=== PATIENT | female | born 1975 | race Caucasian/White ===

== ENCOUNTER 2016-12-31 22:02 | Emergency (ER) | payer BC ==
--- NOTE | 2016-12-31 22:37 | EDM.PDOC ---
ED HPI GENERAL MEDICAL PROBLEM - General Chief Complaint: General Stated Complaint: NUMBNESS IN LEFT HAND/BOTH LEGS Time Seen by Provider: 12/31/16 22:34 - History of Present Illness INITIAL COMMENTS - FREE TEXT/NARRATIVE: HISTORY AND PHYSICAL: History of present illness: Patient 41-year-old white female she is a concern of left arm tingling bilateral lower extremity numbness tingling in right hand numbness tingling along with vaguely described chest pain without associated shortness breath palpitation nausea vomiting or other concerns patient is kind of recall an episode in which she was seen possibly emergency room for what was diagnosed as a panic attack she cannot give any specific details with features not medicated for such. She has no chest pain on arrival here her other concern other than some vague residual neurological symptoms as described above this is not demonstrable on exam there is no motor or sensory deficits. Review of systems: As per history of present illness and below otherwise all systems reviewed and negative. Past medical history: As per history of present illness and as reviewed below otherwise noncontributory. Surgical history: As per history of present illness and as reviewed below otherwise noncontributory. Social history: No reported history of drug or alcohol abuse. Family history: As per history of present illness and as reviewed below otherwise noncontributory. Physical exam: HEENT: Atraumatic, normocephalic, pupils reactive, negative for conjunctival pallor or scleral icterus, mucous membranes moist, throat clear, neck supple, nontender, trachea midline. Lungs: Clear to auscultation, breath sounds equal bilaterally, chest nontender. Heart: S1S2, regular, negative for clicks, rubs, or JVD. Abdomen: Soft, nondistended, nontender. Negative for masses or hepatosplenomegaly. Negative for costovertebral tenderness. Pelvis: Stable nontender. Genitourinary: Deferred. Rectal: Deferred. Extremities: Atraumatic, negative for cords or calf pain. Neurovascular unremarkable. Neuro: Awake, alert, oriented age. Cranial nerves II through XII unremarkable. Cerebellum unremarkable. Motor and sensory unremarkable throughout. Exam nonfocal. Diagnostics: CBC CMP chest x-ray EKG Therapeutics: None Impression: #1 multiple subjective paresthesias etiology to be determined #2 medical screening exam Definitive disposition and diagnosis as appropriate pending reevaluation and review of above. 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 ED EXAM, GENERAL - Physical Exam Exam: See Below (See dictation) Course - Vital Signs Text/Narrative:: Lengthy discussion with patient and with regard to the nonspecific nature of her presentation and the possibility of anxiety or other subacute or occult processes they agree with her current workup and close followup in the event that this is negative imaging studies apart from chest x-ray will be deferred at this time. Last Recorded V/S: Last Vital Signs Temp 36.5 C 12/31/16 22:18 Pulse 120 H 12/31/16 22:18 Resp 20 12/31/16 22:18 BP 157/102 H 12/31/16 22:18 Pulse Ox 96 12/31/16 22:18 - Orders/Labs/Meds Orders: Active Orders 24 hr Category Date Time Status EKG 12 Lead [EKG Documentation Completion] [RC] STAT Care 12/31/16 22:26 Active Chest 2V [CR] Stat Exams 12/31/16 22:27 Taken Labs: Laboratory Tests 12/31/16 12/31/16 Range/Units 22:40 22:40 WBC 10.57 (4.0-11.0) K/uL RBC 4.82 (4.30-5.90) M/uL Hgb 14.6 (12.0-16.0) g/dL Hct 42.8 (36.0-46.0) % MCV 88.8 (80.0-98.0) fL MCH 30.3 (27.0-32.0) pg MCHC 34.1 (31.0-37.0) g/dL RDW Std Deviation 40.9 (28.0-62.0) fl RDW Coeff of [place] 13 (11.0-15.0) % Plt Count 283 (150-400) K/uL MPV 9.70 (7.40-12.00) fL Neut % (Auto) 50.8 (48.0-80.0) % Lymph % (Auto) 43.2 H (16.0-40.0) % [place] % (Auto) 4.8 (0.0-15.0) % Eos % (Auto) 1.1 (0.0-7.0) % Baso % (Auto) 0.1 (0.0-1.5) % Neut # (Auto) 5.4 (1.4-5.7) K/uL Lymph # (Auto) 4.6 H (0.6-2.4) K/uL [place] # (Auto) 0.5 (0.0-0.8) K/uL Eos # (Auto) 0.1 (0.0-0.7) K/uL Baso # (Auto) 0.0 (0.0-0.1) K/uL Nucleated RBC % 0.0 /100WBC Nucleated RBCs # 0 K/uL Sodium 140 (136-146) mmol/L Potassium 4.0 (3.5-5.1) mmol/L Chloride 107 (98-110) mmol/L Carbon Dioxide 21 (21-31) mmol/L BUN 14 (6.0-23.0) mg/dL Creatinine 0.9 (0.6-1.5) mg/dL Est Cr Clr Drug Dosing 69.60 mL/min Estimated GFR (MDRD) > 60.0 ml/min Glucose 119 H (60-110) mg/dL Calcium 9.6 (8.8-10.8) mg/dL Total Bilirubin 0.2 (0.1-1.5) mg/dL AST 21 (5-40) IU/L ALT 27 (8-54) IU/L Alkaline Phosphatase 95 (40-150) Total Protein 7.7 (6.0-8.0) g/dL Albumin 4.2 (3.5-5.0) g/dL Globulin 3.5 (2.0-3.5) g/dL Albumin/Globulin Ratio 1.2 L (1.3-2.8) Departure - Departure Time of Disposition: 23:56 Disposition: Home, Self-Care 01 Condition: good Clinical Impression: Paresthesia - Discharge Information Forms: ED Department Discharge Additional Instructions: The following information is given to patients seen in the emergency department who are being discharged to home. This information is to outline your options for follow-up care. We provide all patients seen in our emergency department with a follow-up referral. The need for follow-up, as well as the timing and circumstances, are variable depending upon the specifics of your emergency department visit. If you don't have a primary care physician on staff, we will provide you with a referral. We always advise you to contact your personal physician following an emergency department visit to inform them of the circumstance of the visit and for follow-up with them and/or the need for any referrals to a consulting specialist. The emergency department will also refer you to a specialist when appropriate. This referral assures that you have the opportunity for followup care with a specialist. All of these measure are taken in an effort to provide you with optimal care, which includes your followup. Under all circumstances we always encourage you to contact your private physician who remains a resource for coordinating your care. When calling for followup care, please make the office aware that this follow-up is from your recent emergency room visit. If for any reason you are refused follow-up, please contact the [facility] emergency department at and asked to speak to the emergency department charge nurse. Followup primary medical doctor one to 2 days return as needed as discussed - My Orders Last 24 Hours: My Active Orders 12/31/16 22:26 EKG 12 Lead [EKG Documentation Completion] [RC] STAT 12/31/16 22:27 Chest 2V [CR] Stat - Assessment/Plan Last 24 Hours: My Active Orders 12/31/16 22:26 EKG 12 Lead [EKG Documentation Completion] [RC] STAT 12/31/16 22:27 Chest 2V [CR] Stat
[2016-12-31 23:09] LABS: CHLORIDE,CL 107 mmol/L (98-110); SODIUM,NA 140 mmol/L (136-146)
[2017-01-01 00:31] VITALS: BP 140/90
--- NOTE | 2017-01-01 15:33 | CR ---
EXAM DATE: 12/31/16 PATIENT'S AGE: 41 Patient: CHOCO FOOTE Facility: [place], [place] Site . Site : [id number] Study: XRay Chest [id number]/24/2017 11:28:52 PM Ordering Physician: Doctor Hart Final Report: INDICATION: Chest pain, extremity numbness/tingling since 2000hrs today. TECHNIQUE: Chest 2 views. COMPARISON: None. FINDINGS: No pneumothorax or pleural effusion. Lungs are clear. Cardiac and mediastinal contours are within normal limits. Upper abdomen and osseous structures as imaged show no acute abnormality. IMPRESSION: No acute cardiopulmonary disease. Dictated by: Taye Gant MD @ 12/31/2016 23:32:48 (Electronic Signature) Report Signed by Proxy. [facility] HOSPITALBlaise
== END 2017-01-01 00:03 | disposition home or self-care (01) ==
LOC: MW.ED 22:02
DX: R20.2 Paresthesia of skin (principal); Z88.0 Allergy status to penicillin; Z90.710 Acquired absence of both cervix and uterus; Z79.899 Other long term (current) drug therapy; Z98.890 Other specified postprocedural states
CPT/HCPCS: 36415; 71020; 71020-26; 80053; 85025; 93005; 99282; 99285-25

== ENCOUNTER 2017-04-05 17:54 | Emergency (ER) | payer BC ==
[2017-04-05 18:13] VITALS: BP 133/85
[2017-04-05] MEDS ORDERED: predniSONE 20 MG Tab PO ONE (18:43)
--- NOTE | 2017-04-05 18:52 | EDM.PDOC ---
ED HPI GENERAL MEDICAL PROBLEM - General Chief Complaint: Allergic Reaction Stated Complaint: RASH Time Seen by Provider: 04/05/17 18:30 Source of Information: Reports: Patient History Limitations: Reports: No Limitations - History of Present Illness INITIAL COMMENTS - FREE TEXT/NARRATIVE: HISTORY AND PHYSICAL: History of present illness: [Patient comes to the emergency room complaining of itchy rash to her chest, back, abdomen, upper and lower extremities. Came on suddenly last evening while at a barbecue. She has numerous food allergies and many unidentified allergies. She doesn't believe that she came into contact with any foods that she is allergic to. She did not use any new laundry detergent, bath soap body wash or lotions. She has otherwise felt well. She denies fever and chills, chest tightness, wheezing, cough, chest pain. No abdominal pain nausea or vomiting. She admits to a sore throat but had a tonsillectomy 3 weeks ago and continues to have a scratchy sensation in her throat. It is no worse today than it had been previously. She's been applying Benadryl topical cream without improvement. ] Review of systems: As per history of present illness and below otherwise all systems reviewed and negative. Past medical history: As per history of present illness and as reviewed below otherwise noncontributory. Surgical history: As per history of present illness and as reviewed below otherwise noncontributory. Social history: No reported history of drug or alcohol abuse. Family history: As per history of present illness and as reviewed below otherwise noncontributory. Physical exam: Temp recheck: 98.6 HEENT: Atraumatic, normocephalic. Oral mucous membranes are pink and moist. Posterior oropharynx appears to be healing well. Neck supple no lymphadenopathy. Lungs: Clear to auscultation, breath sounds equal bilaterally. No wheezing crackles or rales. Heart: S1S2, regular rate and rhythm. Skin: Maculopapular erythematous well-circumscribed lesions scattered lately across face and more prominently to chest back abdomen upper and lower extremities. Blanches with palpation. No vesicles or areas of tenderness. Presentation is consistent with allergic reaction. Neuro: Awake, alert, oriented. Exam nonfocal. Therapeutics: [Prednisone 60 mg by mouth] Impression: [atopic dermatitis ] Plan: [Discussed with patient that her rash appears to be consistent with an allergic reaction. She does not wish to be treated with a Medrol Dosepak as this is been ineffective for her in the past. Has done well with oral medications in the past with similar rashes in the past. She is given her first dose of prednisone in the ER. Rx written for prednisone 20 mg #18 take 3 tabs tomorrow, 2 tabs daily 2 days, then 2 tabs daily 2 days then 1.5 tab daily 2 days, then 1 tablet daily 2 days and one half tablet daily for 2 days. Follow-up with primary care. She is in agreement with today's plan. All questions are answered and concerns are addressed.] Definitive disposition and diagnosis as appropriate pending reevaluation and review of above. - Related Data Allergies Allergy/AdvReac Type Severity Reaction Status Date / Time acetaminophen [From Percocet] Allergy Anaphylactic Verified 04/05/17 18:14 Shock oxycodone [From Percocet] Allergy Anaphylactic Verified 04/05/17 18:14 Shock Penicillins Allergy Anaphylactic Verified 04/05/17 18:14 Shock Home Meds: Home Meds Fexofenadine [Pooja] 180 mg PO DAILY 03/23/16 [History] Albuterol Sulfate [Proair Hfa] 2 puff INH ASDIRECTED PRN 04/05/17 [History] Mometasone Furoate [Nasonex] 2 spray INH BID 04/05/17 [History] Past Medical History HEENT History: Reports: Impaired Vision Other HEENT History: wears glasses Respiratory History: Reports: Asthma Gastrointestinal History: Reports: None Genitourinary History: Reports: Other (See Below) Other Genitourinary History: interstitial cystitis 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 OB/BYN History: stated hysterectomy Psychiatric History: Reports: Panic Attack - Infectious Disease History Infectious Disease History: Reports: Chicken Pox - Past Surgical History HEENT Surgical History: Reports: Tonsillectomy GI Surgical History: Reports: Cholecystectomy Female Surgical History: Reports: Hysterectomy Musculoskeletal Surgical History: Reports: Shoulder Surgery Other Musculoskeletal Surgeries/Procedures:: left wrist and left foot surgery Social & Family History - Family History Family Medical History: Noncontributory - Tobacco Use Smoking Status *Q: Never Smoker Second Hand Smoke Exposure: No - Caffeine Use Caffeine Use: Reports: Coffee Caffeine Use Comment: 1cup/day - Recreational Drug Use Recreational Drug Use: No ED ROS ALLERGIC REACTION - Review of Systems Review Of Systems: ROS reveals no pertinent complaints other than HPI. ED EXAM GENERAL NO PERIP PULSE - Physical Exam Exam: See Below Course - Vital Signs Last Recorded V/S: Last Vital Signs Temp 99.3 F 04/05/17 18:11 Pulse 111 H 04/05/17 18:11 Resp 18 04/05/17 18:11 BP 133/85 04/05/17 18:11 Pulse Ox 95 04/05/17 18:11 - Orders/Labs/Meds Meds: Medications Discontinued Medications Generic Name Dose Route Start Last Admin Trade Name Freniyah PRN Reason Stop Dose Admin Prednisone 60 mg 04/05/17 18:43 Prednisone PO 04/05/17 18:44 ONETIME ONE Departure - Departure Time of Disposition: 18:52 Disposition: Home, Self-Care 01 Condition: Good Clinical Impression: Atopic dermatitis - Discharge Information Referrals: PCP,None [Primary Care Provider] - Additional Instructions: The following information is given to patients seen in the emergency department who are being discharged to home. This information is to outline your options for follow-up care. We provide all patients seen in our emergency department with a follow-up referral. The need for follow-up, as well as the timing and circumstances, are variable depending upon the specifics of your emergency department visit. If you don't have a primary care physician on staff, we will provide you with a referral. We always advise you to contact your personal physician following an emergency department visit to inform them of the circumstance of the visit and for follow-up with them and/or the need for any referrals to a consulting specialist. The emergency department will also refer you to a specialist when appropriate. This referral assures that you have the opportunity for follow-up care with a specialist. All of these measure are taken in an effort to provide you with optimal care, which includes your follow-up. Under all circumstances we always encourage you to contact your private physician who remains a resource for coordinating your care. When calling for follow-up care, please make the office aware that this follow-up is from your recent emergency room visit. If for any reason you are refused follow-up, please contact the [facility] emergency department at and asked to speak to the emergency department charge nurse. [facility] [address] [place] [id number] Follow-up with your primary care provider in 48-72 hours. Take medications as prescribed. Aveeno oatmeal bath as needed for itching. Return to ER as needed as discussed.
== END 2017-04-05 18:58 | disposition home or self-care (01) ==
LOC: MW.ED 17:54
DX: L20.9 Atopic dermatitis, unspecified (principal); J45.909 Unspecified asthma, uncomplicated; Z88.6 Allergy status to analgesic agent; Z88.5 Allergy status to narcotic agent; Z88.0 Allergy status to penicillin; Z79.899 Other long term (current) drug therapy; Z90.710 Acquired absence of both cervix and uterus; Z98.890 Other specified postprocedural states; Z90.49 Acquired absence of other specified parts of digestive tract
CPT/HCPCS: 99283; A9270